=== PATIENT | male | born 1955 | race Caucasian/White ===

== ENCOUNTER 2022-06-30 02:19 | Day surgery (SDC) | payer OTHER, SELFPAY ==
[2022-06-14 10:59] VITALS: BMI 31.2
[2022-06-30 11:19] VITALS: BP 138/82; PULSE 63; RESP 18; TEMP 36.4; O2SAT 99
[2022-06-30] MEDS: LACTATED RINGERS 1,000 ML 150 ML IV CONT (11:26)
--- NOTE | 2022-06-30 11:26 | PM.HPGS ---
History of Present Illness History of Present Illness Consent: Risks, benefits, and alternatives have been discussed and questions answered. Patient agrees to proceed with procedure. Chief complaint: neoplasm screening, hx colon polyps Narrative: Aguila Payne is a 66 year old male Referred for colon cancer screening. He also has a history of colon polyps. He had a tubular adenoma removed over 4 years ago. Review of Systems Review of Systems: All systems reviewed & are unremarkable except as noted in HPI and below PMFSH Family History Family History Father Hypertension Family history of alcoholism Cerebrovascular accident, Onset Age: 77 Mother Hypertension Patient's mother is in good health Sibling Patient's sister is in good health Patient's brother is in good health Social History Social History Smoking status: Never smoker Alcohol intake: current Drinks per week: 3 Substance use type: does not use Living arrangements: with family Spiritual care concerns: No Meds Home Medications and Allergies Home Medications Medication Instructions Recorded Confirmed Type amlodipine 10 mg tablet 10 mg PO DAILY 06/14/22 06/14/22 History aspirin 81 mg tablet 81 mg PO DAILY 06/14/22 06/14/22 History atorvastatin 40 mg tablet 40 mg PO DAILY 06/14/22 06/14/22 History coenzyme Q10 100 mg capsule (Co 100 mg PO BID 06/14/22 06/14/22 History Q-10) hydrochlorothiazide 12.5 mg tablet 12.5 mg PO DAILY 06/14/22 06/14/22 History losartan 100 mg tablet 100 mg PO DAILY 06/14/22 06/14/22 History multivitamin with minerals-folic 1 tablet PO DAILY 06/14/22 06/14/22 History acid 0.4 mg tablet omega-3 fatty acids-vitamin E 1 cap PO DAILY 06/14/22 06/14/22 History 1,000 mg capsule spironolactone 25 mg tablet 25 mg PO DAILY 06/14/22 06/14/22 History tamsulosin 0.4 mg capsule 0.4 mg PO DAILY 06/14/22 06/14/22 History tumeric 100 mg-yvonne 150 mg-olive 1 cap PO DAILY 06/14/22 06/14/22 History 50 mg-oreg 150 mg-caprylate capsule Allergies Allergy/AdvReac Type Severity Reaction Status Date / Time Penicillins Allergy Unknown Other Verified 06/30/22 11:16 Vital Signs Vital Signs - 24 hr 06/30/22 11:19 Temperature 36.4 C Pulse Rate 63 Respiratory Rate 18 Blood Pressure 138/82 Pulse Oximetry 99 Oxygen Delivery Room Air Exam Const: General: alert Orientation/consciousness: patient oriented x3 Resp: Auscultation: clear to auscultation bilaterally Cardio: Rhythm: regular rhythm GI: GI Palp: Yes Soft to palpation and No Tenderness to palpation present (GI) Neuro: General: patient oriented x3 Assessment and Plan Assessment and plan (1) Colon cancer screening: Code(s): Z12.11 - Encounter for screening for malignant neoplasm of colon Status: Acute Assessment and Plan: Colonoscopy with possible biopsy or polypectomy or cautery or injection of substances.
--- NOTE | 2022-06-30 11:48 | P.PNAN_ITS ---
Anes - Initial Pre Proc Eval Procedure: Operation Date: 06/30/22 12:30 Proposed Procedures p Screening Colonoscopy - Colt Ramon MD Date/Time: 06/30/22 11:48 Surgeon: Colt Ramon MD Pre Op Diagnosis: neoplasm screening, hx colon polyps Patient Data Age: 66 Gender: M Height: 1.83 m Weight: 104.9 kg Last Vital Signs Temp 97.6 F 06/30/22 11:19 Pulse 63 06/30/22 11:19 Resp 18 06/30/22 11:19 BP 138/82 06/30/22 11:19 Pulse Ox 99 06/30/22 11:19 O2 Del Method Room Air 06/30/22 11:19 Allergies Allergy/AdvReac Type Severity Reaction Status Date / Time Penicillins Allergy Unknown Other Verified 06/30/22 11:16 Home Medications Medication Instructions Recorded Confirmed Type amlodipine 10 mg tablet 10 mg PO DAILY 06/14/22 06/14/22 History aspirin 81 mg tablet 81 mg PO DAILY 06/14/22 06/14/22 History atorvastatin 40 mg tablet 40 mg PO DAILY 06/14/22 06/14/22 History coenzyme Q10 100 mg capsule (Co 100 mg PO BID 06/14/22 06/14/22 History Q-10) hydrochlorothiazide 12.5 mg tablet 12.5 mg PO DAILY 06/14/22 06/14/22 History losartan 100 mg tablet 100 mg PO DAILY 06/14/22 06/14/22 History multivitamin with minerals-folic 1 tablet PO DAILY 06/14/22 06/14/22 History acid 0.4 mg tablet omega-3 fatty acids-vitamin E 1 cap PO DAILY 06/14/22 06/14/22 History 1,000 mg capsule spironolactone 25 mg tablet 25 mg PO DAILY 06/14/22 06/14/22 History tamsulosin 0.4 mg capsule 0.4 mg PO DAILY 06/14/22 06/14/22 History tumeric 100 mg-yvonne 150 mg-olive 1 cap PO DAILY 06/14/22 06/14/22 History 50 mg-oreg 150 mg-caprylate capsule Patient hx anesthesia problems: none Family hx anesthesia problems: none Results Review: All pre-operative results and documents have been reviewed as part of the pre- operative evaluation. PMFSH Family History Family History Father Hypertension Family history of alcoholism Cerebrovascular accident, Onset Age: 77 Mother Hypertension Patient's mother is in good health Sibling Patient's sister is in good health Patient's brother is in good health Social History Social History Smoking status: Never smoker Alcohol intake: current Drinks per week: 3 Substance use type: does not use Living arrangements: with family Spiritual care concerns: No Anes - Eval Final PreProcedure Day of Procedure 06/30/22 11:48 Patient weight: obese Heart: regular rate and rhythm Lungs: clear to auscultation Airway: Mallampati scale class II Neurological: alert and oriented Last oral intake: >/= 8 hours ASA classification: III Emergent: no Anesthetic plan: proceed Anesthesia type and monitoring: general GIVS and standard monitoring Results Review: All pre-operative results and documents have been reviewed as part of the pre- operative evaluation. Informed Consent: The patient's anesthetic plan and its attendant risks and benefits were discussed with the patient/family/POA. Questions were solicited and answers provided to the satisfaction of the patient/family/POA.
[2022-06-30 12:41] VITALS: BP 86/52; PULSE 58; RESP 19; O2SAT 96
[2022-06-30 12:51] VITALS: BP 89/61; PULSE 54; RESP 16; O2SAT 98
[2022-06-30 13:01] VITALS: BP 115/81; PULSE 53; RESP 20; O2SAT 99
== END 2022-06-30 13:17 | disposition home or self-care (01) ==
PROVIDERS: PCP Hospitalist; Visit Provider Internal Medicine Gastroenterology
PROC: 0DJD8ZZ Inspection of Lower Intestinal Tract, Via Natural or Artificial Opening Endoscopic (ICD-10-PCS; CPT 45378; principal; 2022-06-30 12:30)
DX: Z12.11 Encounter for screening for malignant neoplasm of colon (principal); D12.8 Benign neoplasm of rectum; K64.8 Other hemorrhoids; Z79.82 Long term (current) use of aspirin; E66.9 Obesity, unspecified; Z68.31 Body mass index [BMI] 31.0-31.9, adult
CPT/HCPCS: 45385; 88305; J2704; J7120